=== PATIENT | male | born 1985 | race Caucasian/White ===

== ENCOUNTER 2021-02-15 13:07 | Inpatient (IN) | payer OTHER ==
[~2021-02-15] VITALS: Ht 182.9 cm; Wt 89.2 kg
[2021-02-15 13:32] LABS: Source, Urine Catheter
[2021-02-15 13:34] LABS: Appearance, Urine Clear (Clear); Bilirubin, Urine Neg (Neg); Blood, Urine Neg (Neg); Color, Urine Yellow (P-Yellow); Glucose Qualitative, Urine Neg (Neg); Ketones, Urine Neg (Neg); Leukocyte Esterase, Urine Neg (Neg); Nitrite, Urine Neg (Neg); Protein, Urine 2+ (Neg); Specific Gravity, Urine 1.025 (1.003-1.022); Urobilinogen, Urine NORM (Normal)
[2021-02-15 13:42] LABS: BASOPHILS ABSOLUTE AUTO 0.05 K/mm3 (0.00-0.23); BASOPHILS PERCENT AUTO 0 % (0-2); EOSINOPHILS ABSOLUTE AUTO 0.29 K/mm3 (0.00-0.68); EOSINOPHILS PERCENT AUTO 3 % (0-6); Hematocrit 42.3 % (37.0-53.0); IMMATURE GRAN ABSOLUTE AUTO 0.05 K/mm3 (0.00-0.10); IMMATURE GRAN PERCENT AUTO 0 % (0-1); LYMPHOCYTES ABSOLUTE AUTO 5.24 K/mm3 (0.84-5.20); LYMPHOCYTES PERCENT AUTO 47 % (21-46); MONOCYTES ABSOLUTE AUTO 0.65 K/mm3 (0.16-1.47); MONOCYTES PERCENT AUTO 6 % (4-13); Mean Corpuscular HGB 28.9 pg (26.0-34.0); Mean Corpuscular HGB Conc 33.1 g/dL (31.5-36.5); Mean Corpuscular Volume 87 fL (80-100); Mean Platelet Volume 10.5 fL (9.1-12.4); NEUTROPHILS ABSOLUTE AUTO 4.84 K/mm3 (1.96-9.15); NEUTROPHILS PERCENT AUTO 44 % (41-73); Platelet Count 221 K/mm3 (150-400); RDW Coefficient Variation 13.1 % (11.7-14.2); RDW Standard Deviation 41.4 fL (35.1-46.3); Red Blood Cell Count 4.85 M/mm3 (4.30-5.90); White Blood Cell Count 11.12 K/mm3 (4.00-11.30)
[2021-02-15 13:44] LABS: Acetaminophen, Random <2.0 ug/mL (10.0-30.0); Alanine Aminotransfer (ALT/SGP 58 U/L (12-78); Albumin, Blood 3.1 g/dL (3.4-5.0); Alk Phos 127 U/L (50-136); Anion Gap 8 mmol/L (6-16); Aspartate Aminotrans (AST/SGOT 54 U/L (12-37); Bilirubin, Total 0.4 mg/dL (0.1-1.0); Blood Urea Nitrogen 8 mg/dL (8-24); Bun/Creatinine Ratio 10.8 (12.0-20.0); CO2, Blood 26 mmol/L (21-32); Calcium, Blood 7.9 mg/dL (8.5-10.1); Chloride, Blood 114 mmol/L (98-108); Creatinine, Blood 0.74 mg/dL (0.60-1.20); Ethanol (Alcohol), Blood, Med 154 mg/dL; Globulin, Blood 3.2 g/dL (2.2-4.0); Glomerular Filtration Rate >60 (60-); Glucose, Blood 113 mg/dL (70-99); Potassium, Blood 2.9 mmol/L (3.5-5.5); Sodium, Blood 148 mmol/L (136-145); Total Protein, Blood 6.3 g/dL (6.4-8.2)
[2021-02-15 13:48] LABS: U Amphetamine Screen DETECTED; U Buprenorphine Screen DETECTED; U Cannabinoids Screen DETECTED; U Methamphetamine Screen DETECTED
[2021-02-15 13:49] LABS: U Barbituate Screen Not Detected; U Benzodiazapine Screen Not Detected; U Cocaine Screen Not Detected; U Methadone Screen Not Detected; U Opiates Screen Not Detected; U Oxycodone Screen Not Detected; U Phencyclidine Screen Not Detected; U Propoxyphene Screen Not Detected
[2021-02-15 13:53] LABS: Mucus Mod (0-Heavy)
[2021-02-15 13:54] LABS: Bacteria Few /hpf; Hyaline Casts 0-2 /lpf (0-2); Red Blood Cells, Urine 0-2 /hpf (0-2); Squamous Epithelial Cells Rare /hpf (Few)
--- NOTE | 2021-02-15 14:14 | NUR ---
[address] SCAN VIA TRANSPORT VENT, AMBU BAG AND MASK, AND OXYGEN TANK. TRANSPORT BACK TO ER 26 WITHOUT COMPLICATION.
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
[2021-02-15 14:42] LABS: SARS-Cov-2 (COVID-19) PCR, MMC NEGATIVE (NEGATIVE)
[2021-02-15 15:10] LABS: PCO2 Arterial 44.1 mmHg (35-45); PO2 Arterial 78.5 mmHg (80-100)
[2021-02-15 17:36] LABS: PCO2 Arterial 37.1 mmHg (35-45); PO2 Arterial 63.4 mmHg (80-100); pH Blood Arterial 7.35 (7.35-7.45)
--- NOTE | 2021-02-15 18:20 | NUR ---
PT ARRIVAL TO UNIT... PT ARRIVED ON UNIT INTUBATED AND SEDATED S/P SUICIDE ATTEMPT BY HANGING. PT IS ON PROPOFOL AT 60MCG. ET TUBE IS 7.5 AND 27 AT THE LIPS. VENT SETTINGS ARE AC/VC: 18/500/5/60% WITH O2 SATS >92%. L/S COARSE IN THE RLL CLEAR IN THE MID AND UPPER LOBES. PT'S PUPILS ARE PINPOINT AND FIXED. PT WITHDRAWS FROM PAINFUL STIMULATION. SHIVERS NOTED WITH MINIMAL STIMULATION. PT NOTED TO BE PULLING ON RESTRAINTS WITH SOME MINOR MOVEMENTS OF HIS BLE WHEN OG TUBE WAS PLACED. PT IS IN SR/ST 90'S-LOW 100'S, BP IS STABLE. PT HAS LIGATURE TAPIA AROUND HIS NECK FROM THE S/I ATTEMPT SLIGHT SWELLING NOTED AROUND THE ANTERIOR NECK. BT PRESENT AND HYPOACTIVE. OG TUBE IN PLACE TO LOW INT SUCTION, PLACEMENT VERIFIED BY XRAY. TEMP LINDA IN PLACE PT'S TMAX IS 101.3. URINE IS CLEAR AND WILY IN COLOR. PULSES PALPABLE. WILL CONTINUE TO MONITOR UNTIL REPORT IS GIVEN TO ON COMING RN.
--- NOTE | 2021-02-15 19:00 | NUR ---
ASSUME CARE NOTE: PATIENT IS INTUBATED & SEDATED. PROPOFOL INFUSING AT 60MCG/KG/MIN. VENT SETTINGS ARE ACVC 18/500/5/45%. COUGH & GAG ARE INTACT & PATIENT WITHDRAWS TO PHYSICAL STIMULI. HE MOVES HIS UPPER EXTREMITIES & SWB IN PLACE. HR & BP ARE STABLE. LINDA IS DRAINING CLEAR YELLOW URINE. OG IS HOOKED TO LOW-INTERMITTENT SUCTION WITH A SMALL AMOUNT OF LIGHT BROWN DRAINAGE. LIGATURE TAPIA AROUND THE NECK NOTED. SEE SHIFT ASSESSMENT FOR DETAILS.
--- NOTE | 2021-02-15 22:30 | NUR ---
UPDATE: TEMP & HR PATIENT'S LINDA TEMP READING 102.4. INSERTED ESOPHOGEAL TEMP WHICH READS 101.4. PATIENT'S HR HAS INCREASED FROM 100'S TO 130'S & FIO2 INCREASED TO 85%. DR. SCHMID ON THE UNIT AND SHE HAS ORDERED VILLALOBOS CULTURES AND TYLENOL.
[2021-02-16 01:18] LABS: Source, Urine Catheter
--- NOTE | 2021-02-16 01:27 | NUR ---
UPDATE: BLOOD PRESSURE SPOKE WITH DR. ELIZONDO IN REGARDS TO PATIENT'S LOW BLOOD PRESSURE. SPB 70-80 W/ MAP BTW 60-65. BEGAN TITRATING PROPOFOL DOWN BUT PATIENT BECOMES VERY AGGITAGED WITH STIMULI. 500ML NS BOLUS ORDERED PER DR. ELIZONDO.
[2021-02-16 01:34] LABS: Blood, Urine 1+ (Neg); Glucose Qualitative, Urine Neg (Neg); Ketones, Urine 4+ (Neg); Leukocyte Esterase, Urine 1+ (Neg); Nitrite, Urine Pos (Neg); Protein, Urine 2+ (Neg); Urobilinogen, Urine 1+ (Normal)
[2021-02-16 01:39] LABS: Appearance, Urine Clear (Clear); Bilirubin, Urine 1+ (Neg); Color, Urine Yellow (P-Yellow)
[2021-02-16 01:41] LABS: Bacteria Few /hpf; Red Blood Cells, Urine Rare /hpf (0-2); Squamous Epithelial Cells Not Seen /hpf (Few)
[2021-02-16 03:45] LABS: BASOPHILS ABSOLUTE AUTO 0.07 K/mm3 (0.00-0.23); BASOPHILS PERCENT AUTO 1 % (0-2); EOSINOPHILS ABSOLUTE AUTO 0.05 K/mm3 (0.00-0.68); EOSINOPHILS PERCENT AUTO 0 % (0-6); Hematocrit 45.9 % (37.0-53.0); Hemoglobin 15.7 g/dL (13.5-17.5); IMMATURE GRAN ABSOLUTE AUTO 0.08 K/mm3 (0.00-0.10); IMMATURE GRAN PERCENT AUTO 1 % (0-1); LYMPHOCYTES ABSOLUTE AUTO 1.47 K/mm3 (0.84-5.20); LYMPHOCYTES PERCENT AUTO 11 % (21-46); MONOCYTES ABSOLUTE AUTO 0.61 K/mm3 (0.16-1.47); MONOCYTES PERCENT AUTO 4 % (4-13); Mean Corpuscular HGB 29.3 pg (26.0-34.0); Mean Corpuscular HGB Conc 34.2 g/dL (31.5-36.5); Mean Corpuscular Volume 86 fL (80-100); NEUTROPHILS ABSOLUTE AUTO 11.64 K/mm3 (1.96-9.15); NEUTROPHILS PERCENT AUTO 84 % (41-73); RDW Coefficient Variation 13.4 % (11.7-14.2); RDW Standard Deviation 41.5 fL (35.1-46.3); Red Blood Cell Count 5.35 M/mm3 (4.30-5.90); White Blood Cell Count 13.92 K/mm3 (4.00-11.30)
[2021-02-16 03:46] LABS: Mean Platelet Volume 10.9 fL (9.1-12.4); Platelet Count 171 K/mm3 (150-400)
[2021-02-16 03:58] LABS: Alanine Aminotransfer (ALT/SGP 63 U/L (12-78); Albumin, Blood 3.3 g/dL (3.4-5.0); Alk Phos 131 U/L (50-136); Anion Gap 11 mmol/L (6-16); Aspartate Aminotrans (AST/SGOT 56 U/L (12-37); Bilirubin, Total 0.9 mg/dL (0.1-1.0); Blood Urea Nitrogen 11 mg/dL (8-24); Bun/Creatinine Ratio 15.3 (12.0-20.0); CO2, Blood 20 mmol/L (21-32); Calcium, Blood 8.5 mg/dL (8.5-10.1); Chloride, Blood 110 mmol/L (98-108); Creatinine, Blood 0.72 mg/dL (0.60-1.20); Globulin, Blood 3.4 g/dL (2.2-4.0); Glomerular Filtration Rate >60 (60-); Glucose, Blood 58 mg/dL (70-99); Magnesium, Blood 2.1 mg/dL (1.6-2.4); Phosphorus, Blood 3.6 mg/dL (2.5-4.9); Potassium, Blood 4.6 mmol/L (3.5-5.5); Sodium, Blood 141 mmol/L (136-145); Total Protein, Blood 6.7 g/dL (6.4-8.2)
--- NOTE | 2021-02-16 05:10 | NUR ---
UPDATE: HYPOGLYCEMIA ON PATIENT'S AM LABS, GLUCOSE WAS 58. INTIATED HYPOGLYCEMIC PROTOCOL AND GAVE PATIENT 1 AMP OF D50. AT THE 15 MINUTE RECHECK, HIS BLOOD GLUCOSE CAME UP TO 187.
--- NOTE | 2021-02-16 06:08 | NUR ---
UPDATE: SEDATION VACATION PROPOFOL COMPLETELY OFF FOR 40 MINS WHEN PATIENT WAS ABLE TO OPEN EYES AND TRACK. HE SQUEEZED HANDS AND MOVED HIS LOWER EXTREMITIES ON COMMAND. HE WOULD NOT ANSWER YES OR NO QUESTIONS WITH A NOD. HE BEGAN THRASHING AGAINST RESTRAINTS AND TRYING TO RISE OUT OF BED SO SEDATION RESTARTED. VITALS ALL REMAINED WNL DURING THE ENTIRE SEDATION VACATION.
--- NOTE | 2021-02-16 06:43 | NUR ---
SHIFT SUMMARY: PATIENT REMAINS INTUBATED & SEDATED. DURING SEDATION VACTION, PATIENT ABLE TO OPEN EYES, TRACK, AND SQUEEZE HANDS/MOVE LOWER EXTREMITIES TO COMMAND. VETN SETTINGS: ACVC 18/500/5/50%. PROPOFOL INFUSING AT 30MCG/KG/MIN. TMAX 102.6 BUT CURRENTLY 100.2. HR 97 AND BP 85/57 MAP-69. LINDA DRAINING WILY/GREEN URINE TO GRAVITY AND OG IS TO LIS. WILL REPORT TO ONCOMING RN WHEN AVAILABLE.
--- NOTE | 2021-02-16 07:33 | NUR ---
0700 Bedside shift report recieved form offgoing RN; Plan of care reviewed, patient care assumed without incident. Patient intubated/sedated; no s/s of acute distress. Full assessment to follow (see flowsheet)
--- NOTE | 2021-02-16 14:41 | NUR ---
1431 Pt. awake, A/O to person/place; but forgetful, attempting to remove lines. PIV pulled out by patient, and patient verbalized wanting to go home. Pt. reoriented/educated on plan of care. Patient became tearful, and stated, "My life is over. I downloaded a program on my computer and now all my money is gone. Emotional support offered; Patient agreed to cooperate with tx. Suicide Re-assessment performed. Sitter remains at bedside, will continue to monitor
--- NOTE | 2021-02-16 17:29 | NUR ---
Summary Pt. extubated @ 1000 without incident. Placed on suicide precautions/psych hold. Pt. A/o to person/place, forgetful and tearful throughout shift. callahan removed at 1700. Sitter at bedside. Pt. downgraded to medical status
--- NOTE | 2021-02-16 17:49 | NUR ---
Patient being transferred to [facility] for routine progression of care. Telephone report called to EBER Jovel; care of plan/vitals/eMAR reviewed. Patient transferred off unit without incident.
--- NOTE | 2021-02-16 18:52 | NUR ---
SHIFT SUMMARY: ASSUMED CARE OF PATIENT UPON HIS TRANSFER FROM ICU AT 1755 VIA W/C. WAS A LITTLE GRUMPY ON ARRIVAL; MOOD IS LABILE. A&O X 1, STML. WEAKNESS IN BLE. MADDI REMOVED IN ICU AT 1700, NO VOID YET. EDUCATED PATIENT ABOUT 2 MD INVOLUNTARY HOLD, LOSS OF CIVIL RIGHTS. HAS 1:1 SITTER AT BEDSIDE. ROOM SAFETY MITIGATION COMPLETE.
--- NOTE | 2021-02-17 02:24 | NUR ---
Missed midnight Zosyn dose. Pharmacy notified. Multiple unsuccessful IV attemps by different RNs and the successful ones infiltrated. Unsuccessful midline insertion attemps by ICU staff. Contacting other ICU staff to attepmt peripheral or midline IV insertion. Pt torelating well.
--- NOTE | 2021-02-17 03:40 | NUR ---
PROVIDER NOTIFIED OF LACK OF IV ACCESS. ANTIANXIETY SWITCHED TO PO AND ONE TIME DOSE PO ANTIBIOTIC ORDERED. PT SPIKING FEVER. MEDICATED PER EMAR
--- NOTE | 2021-02-17 05:23 | NUR ---
END OF SHIFT SUMMARY: Pt alert to self and place. Knows where he is but does not remember why. Pt doesnt remember why he is in hospital. Has episodes of agitation and wanting to leave and saying things like, "you guys just need to le me ." and sometimes he is compliant and thankful. Pt has some shiort term memory loss. Does not remember simple details and needs to be reminded often. Pt's IVs infiltrated. multiple unsuccessful US guided IV attempts and multiple midline attempts. Provider notified about missed Zosyn doses. Pt torelatedprocedures well. One on one and remote monitoring. Pt resting at this time. Bed in lowest position.
[2021-02-17 05:28] LABS: BASOPHILS ABSOLUTE AUTO 0.08 K/mm3 (0.00-0.23); BASOPHILS PERCENT AUTO 0 % (0-2); EOSINOPHILS ABSOLUTE AUTO 0.18 K/mm3 (0.00-0.68); EOSINOPHILS PERCENT AUTO 1 % (0-6); IMMATURE GRAN ABSOLUTE AUTO 0.37 K/mm3 (0.00-0.10); IMMATURE GRAN PERCENT AUTO 2 % (0-1); LYMPHOCYTES PERCENT AUTO 10 % (21-46); MONOCYTES ABSOLUTE AUTO 0.59 K/mm3 (0.16-1.47); MONOCYTES PERCENT AUTO 3 % (4-13); Mean Corpuscular HGB 28.8 pg (26.0-34.0); Mean Corpuscular HGB Conc 34.2 g/dL (31.5-36.5); Mean Corpuscular Volume 84 fL (80-100); Mean Platelet Volume 10.7 fL (9.1-12.4); NEUTROPHILS ABSOLUTE AUTO 15.04 K/mm3 (1.96-9.15); NEUTROPHILS PERCENT AUTO 84 % (41-73); Platelet Count 173 K/mm3 (150-400); RDW Coefficient Variation 13.1 % (11.7-14.2); Red Blood Cell Count 4.52 M/mm3 (4.30-5.90); White Blood Cell Count 17.96 K/mm3 (4.00-11.30)
--- NOTE | 2021-02-17 10:03 | NUR ---
PATIENT REQUESTING TO LEAVE UNIT TO GO HOME OR SMOKE A CIGARETTE. EXPLAINED TO PT THAT HE IS ON INVOLUNTARY HOLD D/T SUICIDE ATTEMPT, WHICH HE DENIES. HAS DIFFICULTY WITH STM, EMOTIONALLY LABILE. IS QUITE UNSTEADY ON HIS FEET, REQUIRES ONE PERSON ASSIST. ALLOWED PT TO AMBULATE TO END OF [place] [facility] ACCOMPANIED BY THIS AUTHOR AND NICOLA, HIS 1:1 SITTER. REPEATS QUESTIONS; HAS NO INSIGHT INTO HIS CURRENT STATE AND DOES NOT UNDERSTAND WHY HE'S IN THE HOSPITAL. ALLOWED PT TO CALL HIS MOM; ALSO SHOWED HIM HIS "HOLD" PAPERWORK AND THE TRAUMA WORKSHEET THAT SHOWED THAT HE TRIED TO KILL HIMSELF. WILL CONTINUE TO MONITOR.
--- NOTE | 2021-02-17 14:42 | NUR ---
WHILE THIS AUTHOR WAS AT LUNCH, EVA RIGGS REPORTED THAT PT WAS SEEN WRAPPING A BEDSHEET AROUND HIS NECK. PT HAD EXPLAINED THAT HE WANTED TO USE IT A MASK. HE WAS ON CAMERA AND HAD 1:1 SITTER IN ROOM, BUT [facility] AND TOOK BED SHEET AWAY. PT EDUCATED ABOUT REASON FOR BEING IN HOSPITAL (CONTINUES TO DENY THAT HE TRIED TO KILL HIMSELF) AND RATIONALE FOR HAVING SITTER AND NEEDING TO STAY IN HIS ROOM. MOOD CONTINUES TO BE LABILE, QUICK TO ANGER. WILL CONTINUE TO MONITOR.
--- NOTE | 2021-02-17 17:31 | NUR ---
Attempted to see pt earlier today, but he was in what appeared to be a tense conversation with the sitter. The EDUCATIONAL SIGN LANGUAGE INTERPRETER states the RN is at lunch, and recommends not attempting further to see patient today. Will remain avaiable, and if pt here on tuesday 02/20.
--- NOTE | 2021-02-17 17:41 | NUR ---
DR. CASTLE AT BEDSIDE FOR EVALUATION.
--- NOTE | 2021-02-17 17:42 | NUR ---
SHIFT SUMMARY: NO ACUTE EVENTS. REMAINS EMOTIONALLY LABILE, ANGERS EASILY, DOES NOT UNDERSTAND WHY HE'S HERE AND DENIES ATTEMPTING SUICIDE. CIWA SCORES 3 AND 7, AGITATED; MEDICATED WITH ATIVAN 2 MG WITH SOME RELIEF, NOTED THAT HIS THOUGHT PROCESS SEEMS TO BE MORE LINEAR AFTER MEDICATION. ENCOURAGED PO INTAKE, BUT HE REFUSES TO EAT CLAIMING POOR APPETITE. HE IS IMPULSIVE, GAIT IS UNSTEADY. ALLOWED 2 PHONE CALLS TO HIS MOM, BUT THESE MADE HIM AGITATED. GETTING UP TO USE BR; URINE IS WILY.
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
--- NOTE | 2021-02-18 05:13 | NUR ---
PATIENT WAS AAGITATED ALL NIGHT, HE WAS GIVEN HIS PRN MED FOR AGITATION PER EMAR. WANTED OFF RESTRAINTS. HE WAS ASKED TO PEE BUT SAID HE DOES NOT FELL LIKE IT. HE WAS OFFERED WATER AND NEEDED. SKIN ASSESSMENT AND CIRCULATION WAAS ASSESSED AND CHARTED AT INTERVAL. WILL CONTINUE TO MONITOR PATIENT.
[2021-02-18 05:27] LABS: BASOPHILS ABSOLUTE AUTO 0.05 K/mm3 (0.00-0.23); BASOPHILS PERCENT AUTO 0 % (0-2); EOSINOPHILS ABSOLUTE AUTO 0.45 K/mm3 (0.00-0.68); EOSINOPHILS PERCENT AUTO 3 % (0-6); Hematocrit 35.2 % (37.0-53.0); Hemoglobin 11.9 g/dL (13.5-17.5); IMMATURE GRAN ABSOLUTE AUTO 0.11 K/mm3 (0.00-0.10); IMMATURE GRAN PERCENT AUTO 1 % (0-1); LYMPHOCYTES PERCENT AUTO 16 % (21-46); MONOCYTES ABSOLUTE AUTO 0.72 K/mm3 (0.16-1.47); MONOCYTES PERCENT AUTO 5 % (4-13); Mean Corpuscular HGB 28.5 pg (26.0-34.0); Mean Corpuscular HGB Conc 33.8 g/dL (31.5-36.5); Mean Corpuscular Volume 84 fL (80-100); Mean Platelet Volume 10.5 fL (9.1-12.4); NEUTROPHILS PERCENT AUTO 75 % (41-73); Platelet Count 167 K/mm3 (150-400); Red Blood Cell Count 4.17 M/mm3 (4.30-5.90); White Blood Cell Count 14.63 K/mm3 (4.00-11.30)
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
--- NOTE | 2021-02-18 13:15 | NUR ---
Update Patient woke up agitated, pulling on and trying to bite off restraints. Refused lunch. Assisted patient in calling mom in hopes this will calm him down. Became even more agitated wanting to come off restraints and leave facility. Informed of 2MD hold and assured staff working on safe d/c plan. Unsure if patient understands anything being communicated. Very forgetful. Medicated for agitation and anxiety. Patient grunting and still pulling on restraints. States "My identity is stolen. My [employer] career is lost. I've lost everything!".
--- NOTE | 2021-02-18 17:21 | NUR ---
Shift Summary A/O to self. Extremely forgetful, short attention span and labile mood. No aggressive or combative behavior, but patient is a high fall risk. Attempted to remove restraints, helped patient ambulate in hallway and ANALYST PROGRAMMER assisted with shower. Patient was impulsive, difficult to redirect d/t lack of focus, and has an unsteady gait stumbling around with eyes group home open. Speech is mumbled and sometimes incoherent. Patient has poor depth perception, unable to touch toes with coordination. Patient stood next to bed after shower and leaned over falling into the bed. Lacks awareness of surrounding. Able to get out of khloe and soft bilateral wrist restraints; therefore, for patient's safety, 4 point locked restraints are in place. Medicated per EMAR for agitation and anxiety. Patient has been very restless, in and out of sleep. When awaken, patient pulls on restraints and looks for ways to get out (bites restraints, pull off velcro straps, and try to "untie" restraints off the bed). 1:1 sitter at the bedside. Hydration and food offered, patient often refuses both. HR tachy (see VS). Awaiting psyche placement.
--- NOTE | 2021-02-19 04:26 | NUR ---
NIGHT AHIFT SUMMARY PATIENT REMAINED ANXIUOSAND AGITATED ALWAYS TRYING TO GET OUT OF BED AT ANY SLIGHTEST OPPRTUNITY. HE GOT HIS MED FOR AGITATION SEE EMAR. THE BULK PALLET BUILDER SPOKE WITH THE MOM WHO WAS APPRECIATIVE OF THE CARE AND WAS WORRIED ABOUT THE SON. THIS RN UPDATED HER OF THE PLAN OF CARE SO FAR. THE RESTRAINT WAS UNTIED TO ASSESS THE PATIENT AND HELPED WITH ROM. HE COMPLAINED OF PAIN AND WAS GIVEN TYLENOL ORDERED. WILL CONTINUE TO MONITOR PATIENT. PATIENT STILL HAS 1:1 SITTER.
[2021-02-19 05:10] LABS: BASOPHILS ABSOLUTE AUTO 0.05 K/mm3 (0.00-0.23); BASOPHILS PERCENT AUTO 1 % (0-2); EOSINOPHILS ABSOLUTE AUTO 0.66 K/mm3 (0.00-0.68); EOSINOPHILS PERCENT AUTO 7 % (0-6); Hematocrit 35.7 % (37.0-53.0); Hemoglobin 12.4 g/dL (13.5-17.5); IMMATURE GRAN ABSOLUTE AUTO 0.05 K/mm3 (0.00-0.10); IMMATURE GRAN PERCENT AUTO 1 % (0-1); LYMPHOCYTES ABSOLUTE AUTO 2.42 K/mm3 (0.84-5.20); LYMPHOCYTES PERCENT AUTO 24 % (21-46); MONOCYTES PERCENT AUTO 8 % (4-13); Mean Corpuscular HGB 28.9 pg (26.0-34.0); Mean Corpuscular HGB Conc 34.7 g/dL (31.5-36.5); Mean Corpuscular Volume 83 fL (80-100); Mean Platelet Volume 10.2 fL (9.1-12.4); NEUTROPHILS ABSOLUTE AUTO 6.21 K/mm3 (1.96-9.15); NEUTROPHILS PERCENT AUTO 61 % (41-73); Platelet Count 186 K/mm3 (150-400); RDW Coefficient Variation 12.9 % (11.7-14.2); Red Blood Cell Count 4.29 M/mm3 (4.30-5.90); White Blood Cell Count 10.19 K/mm3 (4.00-11.30)
[2021-02-19 13:43] LABS: SARS-Cov-2 (COVID-19) PCR, MMC NEGATIVE (NEGATIVE)
--- NOTE | 2021-02-19 16:41 | NUR ---
Shift Summary Mom (Alisa) came to visit. Patient did okay during visit, momentary agitation and some had some vulgar language towards Alisa. Exhibiting some paranoia as patient skeptical about drinks and juices brought in by ADMINISTRATIVE COORDINATOR. Poor appetite. Patient had not voided, bladder scan showed > 700 cc. Received T.O. from Dr. Russ for one time straight cath which produced 900 cc urine. Cooperative with straight cath. Medicated for agitation per EMAR, a combination of meds seems to improve agitation some. Drifts to sleep off and on, mumbles incoherently at times. Still thrashing in bed, biting and pulling on restraints, asking for scissors to cut restraints. COVID swab for d/c planning obtained. Labile mood, tearful at times. Admits to still being suicidal, but denies remembering hanging self. No pain issues. WCTM.
[2021-02-19] MEDS ORDERED: ABILIFY MYCITE5 M1 PO (22:37)
[2021-02-19] MEDS ORDERED: LITH300C PO ×2 (22:38)
--- NOTE | 2021-02-20 04:34 | NUR ---
PATIENT HAD A FAIR SHIFT TONIGHT. HAD SOME SNACKS AND IS STILL AGITATED AT TIMES. MEDS WERE GIVEN NEEDED SEE EMAR. STILL SPOKE WITH HIS MOM AND UPDATED HER OF HOW HE IS DOING. [facility] HAS A BED AVAILABLE FOR HIM, BUT THEY ARE NOT ADEQUATELY STAFFED AT THE TIME. THEY WILL CALL US BACK SOON THEY ARE STAFFED. WILL CONTINUE TO MONITOR.
--- NOTE | 2021-02-20 10:22 | NUR ---
Request received from Medical Floor Charge Nurse to complete Suicide Safety Plan. Review of record and discussion with Charge Nurse today. Pt assessed by psychiatrist to require higher level of care-inpatient psychiatric treatment due to severe suicidality. Plan will not be conducted at this time due to severity of patient symptoms and plan to transfer to inpatient treatment for intensive psychiatric care. Charge Nurse agreed, and will call this fiction and nonfiction prose writer if supportive counseling for patient would assist. Candy Dasilva
--- NOTE | 2021-02-20 14:29 | NUR ---
PATIENT CALLED APPROPRIATELY TO ASK TO USE THE BATHROOM TO HAVE A BM. THE FOUR POINT RESTRAINTS HAVE KIMMY UNLOCKED AND REMOVED. THREE CAMPUS RECRUITING INTERN'S AND A GAURDSMAN IS IN THE ROOM ASSISTING THE PATIENT. THE PATIENT IS IN THE BATHROOM AT THIS TIME AND STAFF IS CHANGING HIS LINEN. WILL CONTINUE TO MONITOR AND PLACE THE FOUR POINT RESTRAINTS BACK ON ONCE THE PATIENT IS BACK IN BED
--- NOTE | 2021-02-20 16:22 | NUR ---
DR. GARRISON NOTIFIED OF SUICIDE REASSESSMENT SHOWING A RESULT OF NO RISK. DR. COTTRELL SAID HE ASSESSED THE PATIENT TODAY AND DOES NOT PLAN ON CHANGING HIS SUICIDE RISK AT THIS TIME. WILL CONTINUE TO MONITOR
--- NOTE | 2021-02-20 17:56 | NUR ---
PATIENT IS ALERT AND ORIENTED THIS SHIFT. HE WAS SLIGHTLY AGITATED THIS MORNING WHEN AWAKENED. HE SLEPT THROUGH BREAKFAST BUT WOKE UP FOR LUNCH. HE HAS BEEN COOPERATIVE WITH STAFF. HE STARTED THE SHIFT IN FOUR POINT RESTRAINTS. THE ANKLE RESTRAINTS WERE REMOVED THIS MORNING, HE REMAINS IN BILATERAL WRIST RESTRAINTS. HE AMBULATED TO THE BATHROOM THIS AFTERNOON, HE VOIDED AND HAD A BM AT THAT TIME. THE PATIENT'S MOM, ELLYN SPOKE WITH THIS RN THIS AFTERNOON AND THEN SPOKE WITH THE PATIENT. THE PATIENT IS SITTING UP IN BED EATING DINNER AT THIS TIME. WILL CONTINUE TO MONITOR
--- NOTE | 2021-02-21 04:57 | NUR ---
PATIENT IS ASLEEP LYING IN BED. PT HAD ONE EPISODE OF CONFUION BUT WAS QUICKLY REORIENTED. PT WAS CALM AND COOPERATIVE THROUGHOUT SHIFT. RR EVEN ND UNLABORED. 2 POINT RESTRAINTS SECURE, PULSES INTACT, ASSESSED ROM THROUGHOUT SHIFT. NO OTHER APPARENT NEEDS AT THIS TIME. SITTER PRESENT AT BEDSIDE. BED ALARM ON, BED IN LOW POSITION AND CALL LIGHT WITHIN REACH.
[2021-02-21 09:54] LABS: BASOPHILS ABSOLUTE AUTO 0.04 K/mm3 (0.00-0.23); BASOPHILS PERCENT AUTO 1 % (0-2); EOSINOPHILS ABSOLUTE AUTO 0.45 K/mm3 (0.00-0.68); EOSINOPHILS PERCENT AUTO 6 % (0-6); Hematocrit 41.5 % (37.0-53.0); Hemoglobin 14.2 g/dL (13.5-17.5); IMMATURE GRAN ABSOLUTE AUTO 0.05 K/mm3 (0.00-0.10); IMMATURE GRAN PERCENT AUTO 1 % (0-1); LYMPHOCYTES ABSOLUTE AUTO 2.57 K/mm3 (0.84-5.20); LYMPHOCYTES PERCENT AUTO 32 % (21-46); MONOCYTES ABSOLUTE AUTO 0.76 K/mm3 (0.16-1.47); MONOCYTES PERCENT AUTO 10 % (4-13); Mean Corpuscular HGB 29.2 pg (26.0-34.0); Mean Corpuscular HGB Conc 34.2 g/dL (31.5-36.5); Mean Corpuscular Volume 85 fL (80-100); Mean Platelet Volume 9.6 fL (9.1-12.4); NEUTROPHILS PERCENT AUTO 52 % (41-73); Platelet Count 245 K/mm3 (150-400); Red Blood Cell Count 4.87 M/mm3 (4.30-5.90); White Blood Cell Count 7.97 K/mm3 (4.00-11.30)
[2021-02-21 10:11] LABS: Albumin, Blood 2.7 g/dL (3.4-5.0); Anion Gap 2 mmol/L (6-16); Blood Urea Nitrogen 8 mg/dL (8-24); Bun/Creatinine Ratio 11.9 (12.0-20.0); CO2, Blood 29 mmol/L (21-32); Calcium, Blood 9.5 mg/dL (8.5-10.1); Chloride, Blood 112 mmol/L (98-108); Creatinine, Blood 0.68 mg/dL (0.60-1.20); Glomerular Filtration Rate >60 (60-); Glucose, Blood 102 mg/dL (70-99); Phosphorus, Blood 2.9 mg/dL (2.5-4.9); Potassium, Blood 4.1 mmol/L (3.5-5.5); Sodium, Blood 143 mmol/L (136-145)
--- NOTE | 2021-02-21 10:33 | NUR ---
PATIENT IS RESTING QUIETLY IN BED. HE IS ALERT TO PERSON AND PLACE. HE DENIES CURRENT THOUGHTS TO HARM OR INJURY HIMSELF. HE REPORTS HE FEELS TIRED BUT DENIES ANY DISCOMFORT AT THIS TIME. HE IS COOPERATIVE AND DOES NOT APPEAR AGITATED OR RESTLESS. HE DOES NOT APPEAR TO BE IN ACUTE DISTRESS.
--- NOTE | 2021-02-21 12:20 | NUR ---
AT 0930, BILATERAL WRIST RESTRAINTS WERE DISCONTINUED DUE TO PT IS SLEEPING MOSTLY, DENIES THOUGHTS TO HARM SELF OR OTHERS, AND HE HAS BEEN COOPERATIVE. HE WAS AWAKENED TO EAT BREAKFAST. HE ALERT AND ORIENTED TO PERSON, PLACE, DATE, AND SITUATION. HE HAS BEEN SLEEPING MOSTLY BUT EASILY AWAKES TO VERBAL STIMULI. HE SPEAKS CALMY AND IS COOPERATIVE. HE STATES "I WILL NOT DO ANYTHING TO HARM MYSELF, WE WILL HAVE A GOOD DAY." PT ENCOURAGED TO NOTIFY SITTER OR STAFF IF HE FEELS ANXIOUS, AGITATED, SI/HI/AH/VH, OR ANY CONCERNS. PT VERBAIZED UNDERSTANDING AND AGREED.
--- NOTE | 2021-02-21 18:11 | NUR ---
PATIENT HAS APPEARED TO BE SLEEPING MOST OF THE DAY. HE EASILY RESPONDS TO VERBAL STIMULI. HE IS ALERT X 4. HE IS CALM AND COOPERATIVE. HE HAS BEEN WITHOUT RESTRAINTS SINCE 929. HE DENIES SI/AH/VH/HI. HE DENIES DISCOMFORT OR PAIN. HE ATE BREAKFAST AND LATE LUNCH PER SITTER. HE WANTS TO EAT DINNER LATER. PER SITTER, PATIENT WAS NOTED CURSING ON THE PHONE WHEN SPEAKING WITH HIS MOTHER. HE DID NOT SHOW ANY VERBAL OR PHYSICAL AGRESSION. CIWA - 0.
--- NOTE | 2021-02-22 05:01 | NUR ---
PATIENT IS ASLEEP LYING IN BED. PATIENT HAS BEEN CALM AND COOPERATIVE THROUGHOUT SHIFT. SITER IS PRESENT AT BEDSIDE. NO ACUTE CHANGES OVRNIGHT, VS WNL. NO APPARENT NEEDS.
--- NOTE | 2021-02-22 12:08 | NUR ---
PATIENT IS ALERT AND ORIENTED X 4. HE IS CALM, COOPERATIVE, AND EXPRESSES HAVING A BRIGHTER OUTLOOK IN LIFE. HE STATES HE FEELS BETTER TODAY, A LITTLE SLUGGISH BUT NOT TIRED YESTERDAY. HE STATES "I REALLY WAS MESSED UP." HE DENIES SI/HI/AH/VH. HE IS MORE ALERT, TALKATIVE, AND SMILES/LAUGHS. HE HAS NOT SHOWN ANY AGGRESSIVE BEHAVIOR TO SELF OR OTHERS.
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
--- NOTE | 2021-02-22 15:34 | NUR ---
Patient is sitting up in bed and alert. 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 He talks about his the pitfalls of people and things he needs to avoid and neglect of his mental health (i.e.not quitting counseling and Psych meds). He talks about his perferred plan to move forward. I beleive without radical intervention patient will again be a threat to himself and others. I encourage aggressive self-care, reinforce helpful attitudes and practices and provide therapeutic listening and prayer. Patient responds well and shows signs of an increased hope.
[2021-02-22] MEDS ORDERED: QUET200 PO (17:26)
--- NOTE | 2021-02-22 17:39 | NUR ---
PATIENT IS ALERT AND ORIENTED X 4. HE DENIES ANY DISCOMFORT. HE HAD AN UNEVENTFUL DAY. INSIGHT - GOOD, POSITIVE TALK. HE IS CALM, COOPERATIVE, AND APPROPRIATE. HE DENIES SI/HI/AH/VH. VERY PLEASANT AND EXCITED TO GO HOME. HE VOICES PLANS TO ESTABLISH A SPONSOR AND ATTEND AA MEETINGS TO MAINTAIN SOBRIETY. SITTER AND SUIDICAL RISK LOWERED EARLIER TODAY. HE IS CLEARED TO DISCHARGE TO HOME.
== END 2021-02-22 18:00 | disposition home or self-care (01) | DRG 922 ==
LOC: ER 13:07 → MEDS 15:14 → ICUW 15:14 → MEDS 02-16 17:55
PROVIDERS: Emergency Medicine; Family Medicine; Internal Medicine; Internal Medicine Critical Care Medicine; ADMIT Internal Medicine
PROC: 0BH18EZ Insertion of Endotracheal Airway into Trachea, Via Natural or Artificial Opening Endoscopic (ICD-10-PCS; principal; 2021-02-15)
PROC: 5A1935Z Respiratory Ventilation, Less than 24 Consecutive Hours (ICD-10-PCS; 2021-02-15)
DX: T71.162A Asphyxiation due to hanging, intentional self-harm, initial encounter (principal); J96.01 Acute respiratory failure with hypoxia; G93.1 Anoxic brain damage, not elsewhere classified; R65.10 Systemic inflammatory response syndrome (SIRS) of non-infectious origin without acute organ dysfunction; Z20.822 Contact with and (suspected) exposure to COVID-19; E16.2 Hypoglycemia, unspecified; E87.6 Hypokalemia; F12.10 Cannabis abuse, uncomplicated; F15.10 Other stimulant abuse, uncomplicated; F10.10 Alcohol abuse, uncomplicated; F31.9 Bipolar disorder, unspecified; F60.0 Paranoid personality disorder; F17.210 Nicotine dependence, cigarettes, uncomplicated; Z91.51 Personal history of suicidal behavior
CPT/HCPCS: 31500; 36415; 36600; 51702; 70450; 70498; 71045; 80053; 80069; 81001; 82550; 82803; 82947; 83735; 84100; 84132; 85025; 87040; 87070; 87077; 87086; 87185; 87205; 93005; 93010; 94002; 94003; 96374-59; 99291-25; A9270; C9113; G0480; J1650; J2060; J2250; J2543; J2704; J3010; J3480; J7040; J7050; Q9967; U0004